=== PATIENT | female | born 1975 | race Caucasian/White ===

== ENCOUNTER → 2016-11-03 | Outpatient (CLI) | payer BC ==
[~2016-11-03] MED LIST: CAMILA0.35 MG PO; COLACE 100MG C100 MG PO; FISH OIL 1,2001 EAC1 PO; GLUCOPHAGE 500500 MG PO; LORTAB PO; MULTIVITAMINS1 EAC1 PO; TOPROL XL50 MG PO
== END ==
LOC: OPSV2 10:00
DX: Z01.818 Encounter for other preprocedural examination (principal); K80.20 Calculus of gallbladder without cholecystitis without obstruction

== ENCOUNTER → 2016-11-10 | Day surgery (SDC) | payer BC, OTHER ==
[~2016-11-10] VITALS: Ht 165.1 cm; Wt 103.4 kg
== END | disposition home or self-care (01) ==
LOC: OR 08:52
PROVIDERS: Surgery
PROC: BF13YZZ Fluoroscopy of Gallbladder and Bile Ducts using Other Contrast (ICD-10-PCS; 2016-11-10)
PROC: 0FT44ZZ Resection of Gallbladder, Percutaneous Endoscopic Approach (ICD-10-PCS; principal; 2016-11-10 12:00)
DX: K80.10 Calculus of gallbladder with chronic cholecystitis without obstruction (principal); I10 Essential (primary) hypertension; E11.9 Type 2 diabetes mellitus without complications; Z90.89 Acquired absence of other organs; Z79.899 Other long term (current) drug therapy; Z88.1 Allergy status to other antibiotic agents; K76.0 Fatty (change of) liver, not elsewhere classified
CPT/HCPCS: 36415; 47531; 82962; 84703; J1100; J1885; J2250; J2405; J2710; J3010; J7030; J7120; Q9962

== ENCOUNTER 2020-08-28 17:13 | Inpatient (IN) | payer OTHER ==
[~2020-08-28] VITALS: Ht 165.1 cm; Wt 108.9 kg
[2020-08-28 19:03] LABS: HEMOGLOBIN 10.9 gm/dl (12.3-15.3); RED BLOOD COUNT 4.09 M/UL (4.00-5.10); WHITE BLOOD COUNT 13.2 K/UL (4.5-11.0)
[2020-08-28] MEDS ORDERED: KEFLEX CAP 250250 MG PO (19:23)
[2020-08-28] MEDS ORDERED: ASPIRIN EC81 MG PO (19:24)
[2020-08-28] MEDS ORDERED: METOPROLOL SUCC50 MG PO (19:25)
[2020-08-28] MEDS ORDERED: HUMULIN N100 UNIT/1 SQ ×2 (19:27→19:34)
[2020-08-28] MEDS ORDERED: HUMULIN R100 UNIT/1 SQ ×2 (19:29→19:33)
[2020-08-30 16:28] LABS: HEMOGLOBIN 10.3 gm/dl (12.3-15.3); RED BLOOD COUNT 3.77 M/UL (4.00-5.10); WHITE BLOOD COUNT 25.2 K/UL (4.5-11.0)
[2020-08-31] MEDS ORDERED: HYDROCODON-ACE1 EAC4 PO (11:19)
[2020-08-31] MEDS ORDERED: IBUPROFEN600 MG PO (11:19)
[2020-08-31] MEDS ORDERED: DOCUSATE SODIU100 MG PO (11:19)
== END 2020-09-01 16:13 | disposition home or self-care (01) | DRG 787 ==
LOC: GENOP 17:13 → OB 17:30
PROVIDERS: Obstetrics & Gynecology; ADMIT Obstetrics & Gynecology
PROC: 0U7C7ZZ Dilation of Cervix, Via Natural or Artificial Opening (ICD-10-PCS; 2020-08-28)
PROC: 3E033VJ Introduction of Other Hormone into Peripheral Vein, Percutaneous Approach (ICD-10-PCS; 2020-08-28)
PROC: 10907ZC Drainage of Amniotic Fluid, Therapeutic from Products of Conception, Via Natural or Artificial Opening (ICD-10-PCS; 2020-08-28)
PROC: 0UN90ZZ Release Uterus, Open Approach (ICD-10-PCS; 2020-08-30)
PROC: 30233N1 Transfusion of Nonautologous Red Blood Cells into Peripheral Vein, Percutaneous Approach (ICD-10-PCS; 2020-08-30)
PROC: 10D00Z1 Extraction of Products of Conception, Low, Open Approach (ICD-10-PCS; principal; 2020-08-30 03:07)
DX: O13.4 Gestational [pregnancy-induced] hypertension without significant proteinuria, complicating childbirth (principal); D62 Acute posthemorrhagic anemia; Z3A.39 39 weeks gestation of pregnancy; Z37.0 Single live birth; O24.424 Gestational diabetes mellitus in childbirth, insulin controlled; O76 Abnormality in fetal heart rate and rhythm complicating labor and delivery; Z90.49 Acquired absence of other specified parts of digestive tract; O99.02 Anemia complicating childbirth; O69.81X0 Labor and delivery complicated by cord around neck, without compression, not applicable or unspecified; N85.6 Intrauterine synechiae; Z28.21 Immunization not carried out because of patient refusal
CPT/HCPCS: 36415; 36430; 81001; 82800; 82962; 85025; 86850; 86900; 86901; 86920; C9113; J1580; J2274; J2405; J2590; J2795; J7030; J7120; P9016